=== PATIENT | male | born 2000 | race Caucasian/White ===

== ENCOUNTER 2021-01-01 03:40 | Emergency (ER) | payer OTHER ==
[~2021-01-01] VITALS: Ht 182.9 cm; Wt 81.2 kg
== END 2021-01-01 05:57 | disposition home or self-care (01) ==
LOC: ED 03:40
DX: K52.9 Noninfective gastroenteritis and colitis, unspecified (principal)
CPT/HCPCS: 80053; 81001; 83690; 83735; 85007; 85025; 96374; 99284-25; A9270; J2405; J7030